=== PATIENT | male | born 1945 | race Caucasian/White ===

== ENCOUNTER → 2021-01-01 09:18 | Outpatient (CLI) | payer MEDICARE, BC ==
--- NOTE | 2021-01-03 14:15 | EC ---
PATIENT:EDISON LATIF DATE OF SERVICE: 01/01/21 SEX: M MEDICAL RECORD: [id number] DATE OF : 41 [facility] AGE [facility] PAT[facility]: 75 ADMISSION DATE: 01/01/21 REFERRING PHYSICIAN: INTERPRETING PHYSICIAN: ARIADNA WALLER MD ECHOCARDIOGRAM REPORT ECHO CHARGES 4 ECHO COMPLETE Date: 01/01/21 CLINICAL DIAGNOSIS: HEART MURMUR/ANGINA ECHOCARDIOGRAPHIC MEASUREMENTS (adult normal given) AC root (d.<3.7cm) 3.5 cm LV Septum d (<1.2 cm> 1.5 cm Valve Excursion 1.9 cm LV Septum (systole) 1.8 cm Left Atria (s.<4.0cm> 3.8 cm LVPW d(<1.2cm) 1.5 cm RV (d.<2.3cm) 4.1 cm LVPW (sytole) 1.8 cm LV diastole(<5.6CM) 5.4 cm MV E-F(>70mm/sec) cm LV systole 3.4 cm LVOT Diameter 1.8 cm MV exc.(>10mm) 1.7 cm Est.ejection fraction (50-75%) % DOPPLER: LVIT cm/sec A 108.0cm/sec E 90.0 cm/sec LA cm/sec RVSP 27 mmHg LVOT 133 cm/sec AOP1/2T m/s Asc. Ao 176 cm/sec RVOT 103 cm/sec RA cm/sec PA 171 cm/sec AV Gradient Peak 12.40mmHg AV Mean 6.94 mmHg AV Area 1.9 cm MV Gradient Peak 6.30 mmHg MV Mean 2.36 mmHg MV Area cm COMMENTS: Grain Loader: 2 SHWETA PITTS Hand Inserter Operator: 3 Dr. Rodríguez TAPE# PACS Pericardial Effusion N DATE OF SERVICE: Adequate 2D, color-flow imaging, spectral Doppler, and M-Mode FINDINGS: LVH present. LV internal dimension is normal. Wall motion is normal. EF is greater than or equal to 55%. Aortic valve is tricuspid. No evidence of stenosis by Doppler interrogation. Left atrium is normal. Mitral valve shows no prolapse. Trivial MR. Right side is grossly normal. Mild TR. TRANSINT:[id number] Voice Confirmation ID: [id number] DOCUMENT ID: [id number] ECHOCARDIOGRAM REPORT [id number] EDISON LATIF,ARIADNA Graham MD at 1415 CC: [id number] DICTATION DATE: 01/02/21 1045 CORPORATE LOGISTICS MANAGER: 01/02/21 1703 DEP CLI 01/01/21 [facility] [address] [place] [address]
== END | disposition home or self-care (01) ==
LOC: D.HCCARDIO 09:18
PROVIDERS: ATTEND Internal Medicine Cardiovascular Disease
DX: I20.9 Angina pectoris, unspecified (principal); R01.1 Cardiac murmur, unspecified

== ENCOUNTER 2021-01-08 11:28 | Day surgery (SDC) | payer MEDICARE, BC ==
[~2021-01-08] VITALS: Ht 170.2 cm; Wt 97.3 kg
--- NOTE | ~2021-01-08 | OP ---
PATIENT NAME: EDISON LATIF MEDICAL RECORD: [id number] :41 LOCATION:D.CAT ADMISSION DATE: SURGEON: ARIADNA WALLER MD DATE OF OPERATION: 01/08/2021 PROCEDURE: Left heart catheterization, selective coronary angiography plus IFR wire plus stenting to LAD. FINDINGS: Left ventriculography in 30-degree HODGES view: Normal wall motion and normal systolic function. CORONARY ANATOMY: Left main: Left main is free of disease. LAD: Has a long diffuse stenosis from the ostial of the LAD down to the mid portion of 80%, correlating nicely with nuclear study. Circumflex: Codominant system, free of disease. Right coronary artery: Again, codominant system, free of disease. Single vessel disease. PLAN: Intervention of the LAD momentarily. DESCRIPTION: Using indwelling radial sheath, an XB LAD catheter, excellent guide catheter support followed by a 300 cm IFR wire, which was placed at distal stenosis. Next, this was followed by a 3.0 x 22 Marc drug-eluting stent placed across the long diffuse LAD stenosis up to 16 atmospheres. Final angiography shows excellent resolution, long 80% stenosis to no significant residual. IFR wire improved from 70s to 0.87. At this point in time, wire and guide catheter removed. The patient returned to the james in stable condition. Plavix loaded in the lab. Heparin and Integrilin were used during the case. Sheath closed with TR band. TRANSINT:[id number] Voice Confirmation ID: [id number] DOCUMENT ID: [id number] ARIADNA WALLER MD CC: [id number] DICTATION DATE: 01/08/21 1342 PLACEMENT INTERVIEWER: 01/08/21 181 [facility] 01/08/21 [facility] [address] [place] [address]
--- NOTE | ~2021-01-08 | HEMODYNAMI ---
PATIENT:EDISON LATIF MEDICAL RECORD: [id number] : 41 LOCATION:D.CAT ADMISSION DATE: 01/08/21 Generatedon:113:45 Patient name: EDISON LATIF Patient #: [id number] SSN: : 1945 Date of study: 01/08/2021 Page: Of Hemodynamic Procedure Report Patient Data Patient Demographics Procedure consent was obtained First Name: EDISON Gender: Male Last Name: SALOMON : 1945 Patient #: [id number] Age: 75 year(s) Race: Unknown Additional ID: [id number] Contact details [address]: [address] [place] [address] State: [place] City: [place] Zip code: [address] Admission Admission Data Admission Date: 01/08/2021 Admission Time: 11:28 Arrival Date: 01/08/2021 Arrival Time: 13:30 Admit Source: Other Insurance Payor: Medicare [facility] #: [id number] Height (in.): 67 BSA: 2.09 (m2) Height (cm.): 170.18 BMI: 33.83 (kg/m2) Weight (lbs.): 216 Weight (kg.): 97.98 Lab Results Lab Result Date: 01/08/2021 Lab Result Time: 0:00 Biochemistry Name Units Result Min Max BUN mg/dl 38 --(----)-* 7 18 Creatinine mg/dl 2.4 --(----)-* 0.6 1.3 CBC Name Units Result Min Max Hemoglobin g/dl 8.5 *-(----)-- 13.5 17.5 Procedure Procedure Types Cath Procedure Diagnostic Procedure [facility] w/Coronaries FFR/IVUS FFR Initial Sedation Charges Moderate Sedation 25-39 minutes PCI Procedure Coronary Stent Coronary Stent Initial Hemochron ACT Test Procedure Description Procedure Date Procedure Date: 01/08/2021 Procedure Start Time: 13:05 Procedure End Time: 13:41 Procedure Staff Name Function Mariano Ortiz MD Performing Physician Latonia Calderon RT Monitor Evon Schroeder RT Scrub Walter Diego RN Nurse Procedure Data Cath Procedure Fluoroscopy Diagnostic fluoroscopy Total fluoroscopy Time: 7.8 time: 7.8 min min Diagnostic fluoroscopy Total fluoroscopy dose: dose: 1057 mGy 1057 mGy Contrast Material Contrast Material Type Amount (ml) Isovue 300 224 Entry Location Entry Primary Successful Side Size Upsize Upsize Entry Closure Ray ccessful Closure Location (Fr) 1 (Fr) 2 (Fr) Remarks Device Remarks Radial Right 6 Fr Mechanical artery Short Compression Estimated blood loss: 5 ml Diagnostic catheters Device Type Used For End Catheter Placement DIAGNOSTIC Winfield 110cm 5 Multi-vessel Fr catheter ([id number]) Angiography Procedure Complications No complications Procedure Medications Medication Administration Route Dosage Oxygen etCO2 Nasal cannula 2 l/min Lidocaine 2% added to field 20 Heparin Flush Bag added to field 2 bags (1000units/500ml NS) 0.9% NaCl I.V. 100 ml/hr Radial Cocktail I.A. 1 syringe (Verapamil 2mg/Nitro 400mcg/Heparin 1500units) Versed I.V. 1 mg Fentanyl I.V. 50 mcg Versed I.V. 1 mg Fentanyl I.V. 50 mcg Heparin Bolus I.V. 5000 units Integrilin (Bolus I.V. 9 ml 2mg/ml) Versed I.V. 1 mg Nitroglycerin IC/IA I.C. 150 mcg Plavix P.O. 600 mg Hemodynamics Rest BSA: 2.09 (m2) HGB: 8.5 (g/dl) O2 Consumption: Estimated: 244.27 (ml/min) O2 Con sumption indexed: Estimated:116.88 (ml/min/m) Heart Rate: 76 (bpm) Pressure Samples Time Site Value (mmHg) Purpose Heart Use Rate(bpm) 13:08 LV 100/2,3 Snapshot 75 13:09 AO 111/54(79) Pullback 70 Gradients Valve Time Site Site 2 Mean SEP/DFP Peak To Heart Use 1 (mmHg) (sec/min) Peak Rate (mmHg) (bpm) Aortic 13:09 LV AO 10 15 70 111/54(79) Calculations Valve P-P Mean Valve Index Valve Source Name Gradient Area Flow (cm2) Aortic 10 10 Snapshots Pre Cath Intra NCS Post Cath Vital Signs Time Heart Resp SPO2 etCO2 NIBP (mmHg) Rhythm Pain Sedation Rate (ipm) (%) (mmHg) Status Level (bpm) 12:55:23 62 22 97 0 163/75(138) NSR 0 (11) 10(A) , No pain 12:59:55 63 19 99 28.5 155/75(130) NSR 0 (11) 10(A) , No pain 13:04:21 63 18 100 20.2 139/69(103) NSR 0 (11) 10(A) , No pain 13:08:37 78 17 99 9.7 117/76(95) NSR 0 (11) 10(A) , No pain 13:13:00 76 18 100 0 122/60(91) NSR 0 (11) 10(A) , No pain 13:17:22 78 16 99 14.2 128/63(93) NSR 0 (11) 10(A) , No pain 13:21:46 77 15 99 18 121/60(88) NSR 0 (11) 10(A) , No pain 13:26:06 79 18 99 23.2 128/68(98) NSR 0 (11) 10(A) , No pain 13:30:28 76 18 98 1.5 143/72(111) NSR 0 (11) 10(A) , No pain 13:34:57 73 17 99 16.5 133/63(98) NSR 0 (11) 10(A) , No pain 13:39:13 70 15 98 16.5 120/63(93) NSR 0 (11) 10(A) , No pain Medications Time Medication Route Dose Verified Delivered Reason Not es Effectiveness by by 12:55:40 Oxygen etCO2 2 l/min Mariano Watson used for Nasal St Brian Diego RN procedure cannula 12:55:48 Lidocaine 2% added 20ml Mariano Quintana for local to vial Counts Include 234 Beds At [facility] anesthetic field MD CLEANING 12:55:54 Heparin Flush added 2 bags Mariano Quintana used for Bag to Counts Include 234 Beds At [facility] procedure (1000units/500ml field MD CLEANING NS) 12:56:04 0.9% NaCl I.V. 100 Mariano Watson Per physician ml/hr St Brian Diego RN, MD 13:03:03 Versed I.V. 1 mg Mariano Watson for sedation St Brian Diego RN, MD 13:03:09 Fentanyl I.V. 50 mcg Mariano Watson for sedation St Brian Diego RN, MD 13:07:56 Radial Cocktail I.A. 1 Mariano Quintana for (Verapamil syringe DianaBrian Ortiz vasodilation 2mg/Nitro MD CLEANING 400mcg/Heparin 1500units) 13:08:38 Versed I.V. 1 mg Mariano Watson for sedation St Brian Diego RN, MD 13:08:41 Fentanyl I.V. 50 mcg Mariano Watson for sedation St Brian Diego RN, MD 13:11:31 Versed I.V. 1 mg Mariano Watson for sedation St Brian Diego RN, MD 13:17:09 Heparin Bolus I.V. 5000 Mariano Watson for luann ified units St Brian Diego RN anticoagulation with dr MD boone 13:19:37 Integrilin I.V. 9 ml Mariano Watson for Was arslan 1 (Bolus 2mg/ml) St Brian Diego RN antiplatelet ml of MD therapy vial 13:34:54 Nitroglycerin I.C. 150 mcg Mariano Quintana for IC/IA [place] [facility] vasodilation MD CLEANING 13:38:23 Plavix P.O. 600 mg Mariano Watson for St Brian Diego RN antiplatelet therapy Procedure Log Time Note 12:34:11 Diagnostic Cath Status : Elective 12:34:35 Admit Source: Other 12::41 Arrival Date: 01/08/2021 1:30:00 PM 12:35:06 Insurance Payor : Medicare 12:35:14 Patient Height : 67 inches 12:35:19 Patient Weight : 216 lbs 12:35:28 Procedure Status Elective Heart Cath (OP). 12:35:31 Evon Schroeder RT(R) sent for patient. Start room use. 12:35:31 Time tracking: Regular hours (M-F 7:00 - 5:00) 12:35:38 Plan of Care:Hemodynamics will remain stable., Cardiac rhythm will remain stable., Comfort level will be maintained., Respiratory function will remain adequate., Patient/ family verbilizes understanding of procedure., Procedure tolerated without complication., Recovers from procedure without complications.. 12:41:47 Lab Result : Creatinine 2.4 mg/dl 12:41:47 Lab Result : BUN 38 mg/dl 12:41:47 Lab Result : Hemoglobin 8.5 g/dl 12:53:36 ACC Patient presents with Stable Angina CCS Anginal Class 2--Slight limitation of ordinary activity. 12:53:41 Patient received from Pre/Post Procedure Room to CCL 1 Alert and oriented. Tansferred to table in Supine position. 12:53:49 Signed procedure consent form obtained from patient. 12:53:50 Warm blankets applied, and nik hugger turned on for patient comfort. 12:53:51 Correct patient and procedure confirmed by team. 12:53:51 ECG and BP/O2 sat monitors applied to patient. 12:53:53 Full Disclosure recording started 12:53:54 Vital chart was started 12:55:40 Oxygen 2 l/min etCO2 Nasal cannula was administered by Walter Diego RN; used for procedure; Verbal order read back and verified. 12:55:48 Lidocaine 2% 20ml vial added to field was administered by Mariano Ortiz MD; for local anesthetic; Verbal order read back and verified. 12:55:54 Heparin Flush Bag (1000units/500ml NS) 2 bags added to field was administered by Mariano Ortiz MD; used for procedure; Verbal order read back and verified. 12:56:04 0.9% NaCl 100 ml/hr I.V. was administered by Walter Diego RN; Per physician; Verbal order read back and verified. 12:58:09 Baseline sample Acquired. 12:58:13 Rhythm: sinus rhythm 12:58:21 H&P Date Dictated: 01/08/2021 Within 30 days and on chart., H&P Addendum completed by physician on day of procedure. (MUST COMPLETE FOR ALL OUTPATIENTS). 12:58:22 Pre-procedure instructions explained to patient. 12:58:23 Pre-op teaching completed and patient verbalized understanding. 12:58:25 Family in patients room. 12:58:26 Patient NPO since Midnight. 12:58:32 Is the patient allergic to Iodine/contrast media? No. 12:58:45 Was the patient premedicated? Yes 12:58:46 Is patient on blood thinner?No 12:58:48 Patient diabetic? No. 12:58:50 If diabetic: On Metformin? No 12:58:52 Previous problem with sedation/anesthesia? No ? 12:58:55 Snore? Yes 12:58:57 Sleep apnea? No 12:58:58 Deviated septum? No 12:59:00 Opens mouth fully? Yes 12:59:01 Sticks out tongue? Yes 12:59:03 Airway obstruction? No ? 12:59:08 Dentures? Yes in tight 12:59:12 Pre procedure: right dorsailis pedis pulse 2+ Normal; easily identifiable; not easily obliterated 12:59:14 Pre procedure: left dorsailis pedis pulse 2+ Normal; easily identifiable; not easily obliterated 12:59:16 Patient pain scale 0/10 ?. 12:59:22 IV patent on arrival in left forearm with 0.9% NaCl at [facility]. 12:59:24 Lab results completed and on chart. 12:59:30 Right Radial & Right Groin area was prepped with chlora-prep and draped in sterile fashion 12:59:32 Alarms reviewed by R. N. 12:59:32 Sharps counted by scrub and verified by R.N. 12:59:33 Physician arrived 12:59:34 --------ALL STOP TIME OUT------ 12:59:34 Final Timeout: patient, procedure, and site verified with staff and physician. All members of the team are in agreement. 12:59:36 Right Radial & Right Groin site verified by team. 12:59:42 Fire Safety Assessment: A--An alcohol-based skin anteseptic being used preoperatively., C--Open oxygen or nitrous oxide is being used., D--An ESU, laser, or fiber-optic light is being used. 12:59:46 Physical assessment completed. ASA score P 2 - A patient with mild systemic disease as per Mariano Ortiz MD. 12:59:58 4) 15-29 [facility] function. 13:01:21 Maximum allowable contrast dose (3.7 X eGFR X 0.75)66 ml. 13:01:26 Sedation plan: IV Moderate Sedation Medication:Versed, Fentanyl 13:01:30 Use device set Radial Dx or PCI 13:01:31 ACIST Syringe (66498) opened to sterile field. 13:01:31 Medline Cath Pack ([id number]) opened to sterile field. 13:01:32 Bag Decanter () opened to sterile field. 13:01:32 ACIST Hand Control (66400) opened to sterile field. 13:01:32 ACIST Manifold (84319) opened to sterile field. 13:01:33 Tegaderm 4 x 4 (1626W) opened to sterile field. 13:01:33 MBrace Wrist Support ([id number]) opened to sterile field. 13:01:35 SHEATH 6FR RAIN (1595945) opened to sterile field. 13:01:37 EMERALD Guide Wire (177-352) opened to sterile field. 13:03:03 Versed 1 mg I.V. was administered by Walter Diego RN; for sedation; Verbal order read back and verified. 13:03:09 Fentanyl 50 mcg I.V. was administered by Walter Diego RN; for sedation; Verbal order read back and verified. 13:05:34 Procedure started. 13:05:38 Local anesthetic to right radial artery with Lidocaine 2% by Mariano Ortiz MD.INITIAL ACCESS ONLY 13:06:19 A 6 Fr Short sheath was inserted into the Right Radial artery 13:07:13 A DIAGNOSTIC [place] 110cm 5 Fr catheter (561216) was advanced over the wire and used for Multi-vessel Angiography. 13:07:18 Zero performed for pressure channel P1 13:07:56 Radial Cocktail (Verapamil 2mg/Nitro 400mcg/Heparin 1500units) 1 syringe I.A. was administered by Mariano Ortiz MD; for vasodilation; Verbal order read back and verified. 13:08:38 Versed 1 mg I.V. was administered by Walter Diego RN; for sedation; Verbal order read back and verified. 13:08:41 Fentanyl 50 mcg I.V. was administered by Walter Diego RN; for sedation; Verbal order read back and verified. 13:08:45 LV hemodynamics recorded. 13:08:46 LV gram done using HODGES 13:08:49 Injector settings: Ml/sec: 5, Volume: 15, 13:08:58 EF : 55 % 13:09:08 LCA angiography performed. 13:09:11 Injector settings: Ml/sec: 3, Volume: 6, 13:11:31 Versed 1 mg I.V. was administered by Walter Diego RN; for sedation; Verbal order read back and verified. 13:12:18 RCA angiography performed. 13:12:20 Injector settings: Ml/sec: 3, Volume: 6, 13:12:36 Catheter removed. 13:12:43 GUIDE 6FR XBLAD 3.5 catheter ([id number]) opened to sterile field. 13:13:38 6 Fr xblad 3.5 guide catheter was inserted over the wire 13:14:33 LCA angiography performed. 13:14:37 Injector settings: Ml/sec: 3, Volume: 6, 13:16:58 Vivian OmniWire (44003) opened to sterile field. 13:17:09 Heparin Bolus 5000 units I.V. was administered by Walter Diego RN; for anticoagulation; verified with dr boone Verbal order read back and verified. 13:17:09 Pressure wire advanced. 13:17:12 Baseline FFR 1. 13:19:37 Integrilin (Bolus 2mg/ml) 9 ml I.V. was administered by Walter Diego RN; for antiplatelet therapy; Wasted 1 ml of vial Verbal order read back and verified. 13:24:40 Wire advanced across lesion. 13:27:13 Place stent Inflation Number: 1 A ESSENCE RX 3.0 x 22 stent ([id number]) was prepped and advanced across the Prox LAD 80. The stent was deployed at 16 MATTHIAS for 0:30 (min:sec) 0. 13:34:54 Nitroglycerin IC/IA 150 mcg I.C. was administered by Mariano Ortiz MD; for vasodilation; Verbal order read back and verified. 13:36:11 Stent catheter was removed intact over wire. 13:36:17 Wire removed. 13:36:18 Guide catheter removed. 13:36:28 Sheath removed intact; hemostasis achieved with Mechanical Compression to the Right Radial artery. 13:36:43 Procedure ended.(Physican Out) 13:36:53 Fluoroscopy time 07.80 minutes. 13:36:56 Fluoroscopy dose: 1057 mGy 13:36:56 Flurop Dose total: 1057 13:37:02 Dose Area Product 54192 mGy/cm. 13:38:23 Plavix 600 mg P.O. was administered by Walter Diego RN; for antiplatelet therapy; Verbal order read back and verified. 13:38:51 Contrast amount:Isovue 300 224ml. 13:39:09 Maximum allowable dose exceeded? Yes. 13:39:11 Sharps counted by scrub and verified by R.N. 13:39:15 Wright band inflated with 10cc of air. 13:39:17 Insertion/operative site no bleeding no hematoma. 13:39:24 Post right radial artery:stable 13:39:26 Post Procedure Pulses reassessed and unchanged 13:39:31 Post procedure rhythm: unchanged. 13:39:34 Estimated blood loss: 5 ml 13:39:35 Post procedure instruction explained to patient.Patient verbalizes understanding. 13:39:36 Patient needs reinforcement of post procedure teaching. 13:39:50 Procedure type changed to Cath procedure, Diagnostic procedure, LHC, [facility] w/Coronaries, FFR/IVUS, FFR Initial, Sedation Charges, Moderate Sedation 25-39 minutes, PCI procedure, Coronary Stent, Coronary Stent Initial, Hemochron ACT Test 13:40:53 Procedure and supply charges have been captured, reviewed, submitted and are correct. 13:40:59 Procedure Complication : No complications 13:41:01 Vital chart was stopped 13:41:03 [facility] Findings: MVD- PCI performed (see procedure note) 13:41:04 Operative report dictated upon procedure completion. 13:41:05 See physician's report for complete and final results. 13:41:07 Report given to Pre/Post Procedure Room. 13:41:08 ACT drawn and resulted at 224 seconds. (normal therapeutic range 180-240 seconds). 13:41:09 Patient transfered to Pre/Post Procedure Room with Stretcher. 13:41:16 Procedure ended. 13:41:16 Full Disclosure recording stopped 13:41:25 ACC-PCI Only Patient was given prescriptions, or instructed by Mariano Ortiz MD to start/continue the following medications upon discharge: Plavix 13:41:27 End room use (Document Last) 13:43:52 End room use (Document Last) 13:44:47 End room use (Document Last) Intervention Summary Intervention Notes Time ActionType Lesion and Equipment Used Action# Pressure Duration Attributes 13:27:13 [address] stent Prox LAD ESSENCE RX 3.0 x 1 16 00:30 22 stent ([id number]) Device Usage Item Name Manufacture Quantity Catalog [facility] Lot# / Number Charge Number Stock Stock Serial# Code ACIST Syringe Acist 1 53674 422792 681850 199063 20 (19412) Tutti Dynamics Medline Cath Medline 1 [id number] 939552 81003 637629 5 Pack ([id number]) Bag Decanter Microtek 1 2001S 448124 28996 297314 5 (2001S) Medical Inc. ACIST Hand Acist 1 30492 540242 752712 790583 5 Control Medical (68472) Systems Inc ACIST Manifold Acist 1 66257 467922 237100 897498 5 (33940) Medical Systems Inc Tegaderm 4 x 4 3M 1 1626W 705553 303292 815132 5 (1626W) MBrace Wrist Advanced 1 140-0250-00 229442 86330 246597 5 Support Vascular ([id number]) Dynamics SHEATH 6FR Cardinal 1 8776507 889901 3830366 252780 5 RAIN (0170012) Health EMERALD Guide Cardinal 1 502455 820311 027676 931162 5 Wire (200-345) Health DIAGNOSTIC Terumo 1 35-5576 087088 061764 815498 5 [place]infield 110cm 5 Fr catheter (888869) GUIDE 6FR Cardinal 1 66908123 261773 187907 753460 10 XBLAD 3.5 Health catheter (07013168) Vivian Vivian 1 4713723 709141 42248 9976 5 OmniWire (51952) ESSENCE RX 3.0 x Medtronic 1 [id number] 802577 5360965 197735 5 [id number] 22 stent ([id number]) Signature Audit [place] Stage Time Signature Unsigned Intra-Procedure 01/08/2021 Evon Schroeder 1:43:52 PM RT(R) Intra-Procedure 01/08/2021 Walter Diego RN 1:44:47 PM Intra-Procedure 01/08/2021 Mariano Rahman 1:45:07 PM Brian CLEANING [facility] [address] [place] [place] [address]
[2021-01-08] MEDS ORDERED: ZYLOPRIM300 MG PO (11:41)
[2021-01-08] MEDS ORDERED: MULTI-DAY VITAM1 TAB PO (11:41)
[2021-01-08] MEDS ORDERED: FUROSEMIDE40 MG PO (11:42)
[2021-01-08] MEDS ORDERED: CARDURA1 MG PO (11:42)
[2021-01-08] MEDS ORDERED: BAYER CHEWABLE81 MG PO (11:42)
[2021-01-08] MEDS ORDERED: PRAVACHOL40 MG PO (11:42)
[2021-01-08] MEDS ORDERED: HYDRALAZINE HCL50 MG PO (11:43)
[2021-01-08] MEDS ORDERED: TENORMIN50 MG PO (11:43)
[2021-01-08] MEDS ORDERED: OMEPRAZOLE20 M1 PO (11:44)
[2021-01-08] MEDS ORDERED: GLIPIZIDE5 MG PO (11:44)
[2021-01-08] MEDS ORDERED: VITAMIN D325 MC1 PO (11:45)
[2021-01-08 12:01] VITALS: BP 166/63; Ht 170.2 cm; Wt 97.3 kg
[2021-01-08 12:27] LABS: BASOPHILS 0.7 % (0-2); EOSINOPHILS 4.4 % (0-7); HEMATOCRIT 27.9 % (42.0-54.0); HEMOGLOBIN 8.5 g/dL (13.5-17.5); IMMATURE GRANULOCYTES 0.2 % (0-5); LYMPHOCYTE ABS# 1.99 10x3/uL (1.32-3.57); LYMPHOCYTES 21.6 % (15-50); MCH 27.2 pg (26.0-34.0); MCHC 30.5 g/dL (31.0-37.0); MCV 89.1 fL (80.0-100.0); MEAN PLATELET VOLUME 11.4 fL (7.4-10.4); NEUTROPHIL ABS# 5.45 10x3/uL (1.78-5.38); NEUTROPHILS 59.1 % (40-80); PLATELET COUNT 357 10x3/uL (130-400); RBC 3.13 10x6/uL (4.20-6.10); RDW 14.6 % (11.5-14.5); WBC 9.2 10x3/uL (4.8-10.8)
[2021-01-08 12:33] LABS: ANION GAP 18.5 mmol/L (8-16); CALCIUM 8.7 mg/dL (8.5-10.1); CARBON DIOXIDE 21.2 mmol/L (21.0-32.0); CHOL - HDL RATIO 2.2 ratio (2.3-4.9); CREATININE - SERUM 2.4 mg/dL (0.6-1.3); LDL-HDL RATIO 0.7 ratio (1.5-3.5); POTASSIUM - SERUM 4.7 mmol/L (3.5-5.1)
--- NOTE | 2021-01-08 13:55 | NUR ---
PT REC'D TO CATH RECOVERY ROOM 10 [facility]. MONITORS ESTAB. AT BS. SEE TIP FINISHER FLOWSHEETS. ALARMS ON AND C/L IN REACH.
[2021-01-08] MEDS ORDERED: PLAVIX75 MG PO (14:01)
--- NOTE | 2021-01-08 14:10 | NUR ---
DR. WALLER IN TO UPDATE PT AND HIS . R WRIST SITE C/D/I, NO S/S BLEEDING OR SWELLING. PULSES PALP AND CAP REFILL WNL. CM - NSR, VSS. ALARMS ON AND C/L IN REACH.
--- NOTE | 2021-01-08 14:25 | NUR ---
PLAVIX PRESCRIPTION CALLED IN TO JAVIER AT [facility] PER PT REQUEST.
--- NOTE | 2021-01-08 14:40 | NUR ---
R WRIST Z BAND SITE C/D/I, NO S/S BLEEDING OR SWELLING. R ARM/HAND WARM WITH PALP PULSES AND BRISK CAP REFILL. VSS. PT RESTING QUIETLY. ALARMS ON AND C/L IN REACH.
--- NOTE | 2021-01-08 14:55 | NUR ---
PT RESTING QUIETLY. VSS. R WRIST Z BAND SITE C/D/I, NO S/S BLEEDING OR SWELLNG. PULSES PALP. ALARMS ON AND C/L IN REACH.
--- NOTE | 2021-01-08 15:25 | NUR ---
AT BS, PT RESTING QUEITLY, REFUSES SANDWICH OR DRINK AT THIS TIME. R WRIST Z BAND SITE C/D/I, NO S/S BLEEDING OR HEMATOMA. PULSES PALP. R ARM/HAND WARM. VSS. ALARMS ON AND C/L IN REACH.
--- NOTE | 2021-01-08 15:55 | NUR ---
R WRIST Z BAND SITE C/D/I, NO S/S BLEEDING OR SWELLING. R ARM/HAND WARM WITH PALP PULSES AND BRISK CAP REFILL. VSS. WILL BEGIN WEANING AIR FROM Z BAND PER MD ORDERS AFTER 3 HOURS. PT AND VERBALIZE UNDERSTANDING. PT DENIES PAIN OR NEEDS. ALARMS ON AND C/L IN REACH.
--- NOTE | 2021-01-08 16:25 | NUR ---
4 CC AIR REMOVED FROM Z BAND, NO S/S BLEEDING OR SWELLING. PULSES PALP. PT ALERT, DENIES NEEDS. ALARMS ON AND C/L IN REACH.
--- NOTE | 2021-01-08 16:45 | NUR ---
TOTAL 6 CC AIR REMOVED FROM Z BAND, NO S/S BLEEDING OR SWELLING. VSS. ALARMS ON. C/L IN REACH.
--- NOTE | 2021-01-08 17:00 | NUR ---
ALL AIR REMOVED FROM Z BAND, NO S/S BLEEDING OR SWELLING, PULSES PALP. VSS.
--- NOTE | 2021-01-08 17:30 | NUR ---
R WRIST SITE C/D/I, Z BAND REMOVED, NO S/S BLEEDING OR SWELLING - DSG APPLIED. PIV D/C'D INTACT, DSG APPLIED.
--- NOTE | 2021-01-08 17:40 | NUR ---
ALL DISCHARGE INSTRUCTIONS REVIEWED WITH PT AND HIS , INCLUDING RESTRICTIONS, MEDS AND F/U APPT. BOTH VERBALIZE UNDERSTANDING. PT ALLOWED UP TO GET DRESSED AND GO TO BR INDEPENDENTLY.
--- NOTE | 2021-01-08 17:45 | NUR ---
PT D/C'D VIA WC TO PRIVATE VEHICLE WITH ALL PAPERWORK AND BELONGINGS.
== END 2021-01-08 17:45 | disposition home or self-care (01) ==
LOC: D.CATH 11:28
PROVIDERS: ATTEND Internal Medicine Interventional Cardiology
DX: I20.9 Angina pectoris, unspecified (principal); R06.00 Dyspnea, unspecified; I10 Essential (primary) hypertension; E78.5 Hyperlipidemia, unspecified; R01.1 Cardiac murmur, unspecified; R94.30 Abnormal result of cardiovascular function study, unspecified
CPT/HCPCS: 93458; 93571; C9600